=== PATIENT | male | born 1955 | race Caucasian/White ===

== ENCOUNTER 2017-09-02 07:21 | Day surgery (SDC) | payer BC, OTHER ==
[~2017-09-02] VITALS: Ht 185.4 cm; Wt 126.5 kg
[~2017-09-02 07:21] MED LIST: BUPR300T53 PO; HYDR25TA PO; LITH300T4 PO; METO200T49 PO; TERA5CAP4 PO
[2017-09-02 08:30] VITALS: BP 124/88
[2017-09-02] MEDS ORDERED: OLAN1CAP PO (08:41)
[2017-09-02] MEDS ORDERED: SODIUM CHLORIDE 0.9% 1000ML 1,000 ML IV ONE (08:52)
[2017-09-02 09:54] VITALS: BP 134/83
== END 2017-09-02 10:32 | disposition home or self-care (01) ==
LOC: ENDO 07:21 → DAH 07:21 → ENDO 10:32
PROVIDERS: ATTEND Internal Medicine Gastroenterology
DX: K63.5 Polyp of colon (principal); I10 Essential (primary) hypertension; F31.9 Bipolar disorder, unspecified
CPT/HCPCS: 45380; 88305; A4606; J7030

== ENCOUNTER → 2024-05-29 | Outpatient (CLI) | payer MEDICARE ==
[~2024-05-29] MED LIST changes: +METO200T37 PO; -METO200T49 PO; +OLAN1CAP PO
--- NOTE | 2024-05-29 12:01 | HMCIMG ---
MR SPINAL CANAL, CERV WO CON REASON: PAIN AND WEAKNESS COMPARISON: None TECHNIQUE: Routine cervical imaging protocol was performed. FINDINGS: There is severe interspace narrowing at C6-7 with moderate narrowing at C3-4 and C5-6. Remaining interspaces appear preserved. Vertebral body alignment appears unremarkable. There are no focal osseous lesions. Axial images show widely patent to the thecal sac at C3-3. There are facet hypertrophic changes present diffusely. These cause moderate to marked foraminal narrowing at C2-3 on the left. C3-4 shows widely patent spinal canal. Right sided foramen is patent, the left-sided foramen is severely narrowed. C4-5 shows mild midline stenosis due to annular bulging, AP diameter between 7 and 8 mm. There is moderate right and severe left neural foraminal narrowing. C5-6 shows widely patent to the spinal canal in the midline. The left neural foramen is patent, there is moderate to marked narrowing of the right C5-6 neural foramen. C6-7 shows widely patent spinal canal and neural foramina, there are similar findings at C7-T1. Cervical cord and craniocervical junction appear normal. IMPRESSION: 1. Spondylosis with multiple areas of foraminal narrowing as described above. 2. 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
== END | disposition home or self-care (01) ==
LOC: RAH 09:27
PROVIDERS: ATTEND Family Medicine
DX: M47.812 Spondylosis without myelopathy or radiculopathy, cervical region (principal); M50.321 Other cervical disc degeneration at C4-C5 level; M48.02 Spinal stenosis, cervical region; M62.81 Muscle weakness (generalized)
CPT/HCPCS: 72141